=== PATIENT | male | born 1990 | race Two or more races ===

== ENCOUNTER 2023-05-26 21:32 | Emergency (ER) | payer SELFPAY ==
[2023-05-26] MEDS ORDERED: Acetaminophen 325 MG Tab PO ONE ×2 (22:03→22:12)
[2023-05-26] MEDS ORDERED: Ketorolac 15 MG/ML SDV IM ONE (22:03)
[2023-05-26 22:48] LABS: CORONAVIRUS COVID-19 NAA NEGATIVE (NEGATIVE); INFLUENZA A NAA NEGATIVE (NEGATIVE); RESPIRATORY SYNCYTIAL VIR NAA NEGATIVE (NEGATIVE)
== END 2023-05-26 23:14 | disposition home or self-care (01) ==
LOC: JD.ED 21:32
DX: J06.9 Acute upper respiratory infection, unspecified (principal); F17.210 Nicotine dependence, cigarettes, uncomplicated; Z20.822 Contact with and (suspected) exposure to COVID-19
CPT/HCPCS: 0241U; 93005; 96372; 99285; A9270; J1885; 93010; 99284